=== PATIENT | female | born 1985 | race Hispanic/Latino ===

== ENCOUNTER 2017-04-02 08:29 | Outpatient (CLI) | payer OTHER ==
--- NOTE | 2017-04-02 10:17 | ULT ---
OB ULTRASOUND COMPLETE: HISTORY: Evaluate anatomy, 32-week-old patient with second-trimester . FINDINGS: Multiple longitudinal and transverse images of an intrauterine were obtained using a multih ertz curvilinear transducer. Real-time, color flow, and spectral waveform Doppler analysis was used to evaluate the fetus. Images demonstrate a viable intrauterine with the fetus in a breech presentation. The plac enta is posterior and grade 0. Cardiac activity is confirmed measuring 158 b.p.m. anatomic survey is unremarkable. Intracranial structures, spine, cerebellum, 3-vessel cord, di aphragm, right and left kidneys, stomach, 4-chamber heart, as well as cord insertion are unremarkable . The posterior fossa as well as lips and nose are not visualized to comment upon. BIOMETRICS: Biparietal diameter 42 mm, 18 weeks 5 days Head circumference 163 mm, 19 weeks 0 days Abdominal circumference 137 mm, 19 weeks 1 day Femur length 28 mm, 18 weeks 5 days Composite age equals 18 weeks 5 days with an estimated date of delivery of 08/28/17. Estimated weight is 266 gm +/- 39 gm. IMPRESSION: Viable intrauterine . Estimated gestational age is 18 weeks 6 days with an estimated date o f delivery of 08/28/17. POS: [facility]
== END 2017-04-02 08:30 | disposition home or self-care (01) ==
LOC: ULT 08:29
PROVIDERS: ATTEND Family Medicine
DX: Z34.92 Encounter for supervision of normal pregnancy, unspecified, second trimester (principal); Z3A.18 18 weeks gestation of pregnancy
CPT/HCPCS: 76805

== ENCOUNTER 2017-07-11 13:57 | Outpatient (CLI) | payer OTHER | END 2017-07-11 13:58 | disposition home or self-care (01) | LOC: RAD 13:57 | PROVIDERS: ATTEND Family Medicine | DX: O24.419 Gestational diabetes mellitus in pregnancy, unspecified control (principal); O99.89 Other specified diseases and conditions complicating pregnancy, childbirth and the puerperium; E23.2 Diabetes insipidus | CPT/HCPCS: 97802 ==

== ENCOUNTER 2017-08-26 08:07 | Inpatient (IN) | payer OTHER ==
[2017-08-26 08:52] VITALS: BMI 37.0
[2017-08-26] MEDS ORDERED: Bicitra 30 ML UDCUP PO SCH (09:01)
[2017-08-26] MEDS ORDERED: Ondansetron HCl/PF 4 MG/2 ML Vial IVP PRN ×5 (09:01→15:13)
[2017-08-26] MEDS ORDERED: CEFAZOLIN/Water 2 GM/20 ML SYRINGE SLOW IVP SCH (09:01)
[2017-08-26] MEDS ORDERED: Promethazine HCl 25 MG/ML VIAL IM PRN ×2 (09:01→10:36)
[2017-08-26] MEDS ORDERED: Lactated Ringer's 1,000 ML IV SCH ×3 (09:01→15:13)
[2017-08-26 09:54] LABS: Hemoglobin 13.5 g/dL (12.0-16.0); Mean Corpuscular HGB CONC 32.6 g/dL (32.0-36.0); Mean Corpuscular Hemoglobin 32.2 pg (27.0-31.0); Mean Corpuscular Volume 98.8 fl (81.0-99.0); Mean Platelet Volume 8.2 fL (7.4-10.4); Platelet Count 224 thou/uL (130-400); RBC Distribution Width 13.9 % (11.5-14.5); White Blood Cell (WBC) Count 8.5 thou/uL (4.8-10.8)
[2017-08-26] MEDS ORDERED: Bupivacaine 0.75% W/DEXTROSE 8.25% 2 ML AMP ONE (10:26)
[2017-08-26] MEDS ORDERED: Lidocaine 1% PF 5 ML VIAL ONE (10:26)
[2017-08-26] MEDS ORDERED: Bupivacaine 0.25% HCL 30 ML VIAL ONE (10:26)
[2017-08-26] MEDS ORDERED: ePHEDrine/0.9% NaCl/PF SYRINGE 50 mg/10 ml ONE (10:27)
[2017-08-26] MEDS ORDERED: Morphine PF 1 MG/ML SYR ONE (10:27)
[2017-08-26] MEDS ORDERED: Oxytocin 10 UNITS/ML VIAL ONE (10:27)
[2017-08-26 10:28] LABS: HBSAg Index 0.18 S/CO (0-0.99); Hep B Surf Ag Non-Reactive S/CO (NonReactive)
[2017-08-26 10:29] LABS: Syphilis Antibody Nonreactive (Nonreactive); Syphilis Antibody Index 0.04 S/CO (<1.00 Non-Reactive)
[2017-08-26] MEDS ORDERED: Naloxone HCl 0.4 mg/ml Vial IV PRN (10:36)
[2017-08-26] MEDS ORDERED: Naloxone HCl 0.4 mg/ml Vial IVP PRN ×2 (10:36)
[2017-08-26] MEDS ORDERED: Eucerin (Mineral Oil/Petrolatum,White) 30 gm Jar TOP PRN (10:36)
[2017-08-26] MEDS ORDERED: Promethazine HCl 25 MG SUPP PR PRN (10:36)
[2017-08-26] MEDS ORDERED: Ketorolac Tromethamine 30 MG/ML VIAL IVP PRN ×2 (10:36→19:22)
[2017-08-26] MEDS ORDERED: diphenhydrAMINE 50 MG/ML VIAL IVP PRN (10:36)
[2017-08-26] MEDS ORDERED: HYDROmorphone 2 MG/ML VIAL SLOW IVP PRN ×2 (10:37)
[2017-08-26] MEDS ORDERED: Meperidine HCl/PF 25 MG/ML VIAL SLOW IVP PRN ×3 (10:37→22:45)
[2017-08-26] MEDS ORDERED: Ketorolac Tromethamine 30 MG/ML VIAL IVP SCH ×2 (10:45)
[2017-08-26] MEDS ORDERED: Communication Order-Pharmacy FS SCH (10:45)
[2017-08-26] MEDS ORDERED: Ondansetron HCl/PF 4 MG/2 ML Vial ONE ×2 (10:49→16:06)
--- NOTE | 2017-08-26 12:02 | OP ---
DATE OF PROCEDURE: 08/26/2017 PREOPERATIVE DIAGNOSIS: Term intrauterine with previous section in active labor. POSTOPERATIVE DIAGNOSES: Term intrauterine with previous section in active labor, status post delivery. PROCEDURE: Repeat low transverse section. SURGEON: Jenn Meadows M.D. HAMMER ADJUSTER: Dr. Gurdeep Topete. ANESTHESIA: Spinal anesthetic. COMPLICATIONS: No complications. PROCEDURE IN DETAIL: After adequate spinal anesthetic, the patient was placed in supine position. A wedge was placed under her right flank. A Casillas catheter was placed and the abdomen was prepped and draped in the usual sterile technique. A Pfannenstiel incision was made through the old scar. Subc utaneous tissue opened with sharp dissection. Fascia opened with sharp dissection. Peritoneum opene d with sharp and blunt dissection. It was noted that the abdomen was filled with a gravid uterus. A large Anthony O retractor was placed without difficulty and a low transverse incision was made on the uterus. Membranes were ruptured, clear fluid was encountered, and a viable female was delive red in vertex presentation with vacuum assist without difficulty. breathed and cried spontane ously. Approximately 1 minute after delivery the cord was clamped and cut and was handed to [facility] care of the neonatology team. Cord blood was obtained and the placenta was delivered manually and appeared intact. Hysterotomy edges were grasped with ring forceps and the uterus was wiped clean wi th a wet lap. The hysterotomy was then closed in continuous fashion using 0 Monocryl suture. A seco nd layer of imbrication was placed as well as 2 additional [id number] with 0 chromic suture. He mostasis was adequate with the exception of 1 area with some oozing on the left lateral edge. FloSea l was placed over this and wet lap was placed. Approximately 3 minutes later, the area was examined and there was no further bleeding. The peritoneal edges were grasped with hemostats and this layer w as closed in continuous fashion using 2-0 chromic and the fascia was then closed using 0 Vicryl. Spo nge and instrument counts were correct. Wound was irrigated. A few bleeders were cauterized on the subcutaneous tissue and subcutaneous tissue was then closed in continuous fashion using 2-[address] [facility] skin was closed using jaquelin. The patient tolerated the procedure well to go to the recovery [facility] in good condition. Noted the baby is a viable female infant, weight 7 pounds 8 ounces, Apgars 9 at 1 minute and 9 at 5 minutes in level 1 nursery. ESTIMATED BLOOD LOSS: 700 mL.
[2017-08-26] MEDS ORDERED: LR / Pitocin 40 units/1000 ml 1,000 ML ONE (12:24)
[2017-08-26] MEDS ORDERED: Ketorolac Tromethamine 30 MG/ML VIAL ONE (13:08)
[2017-08-26] MEDS ORDERED: Acetaminophen 325 MG TAB PO PRN (15:13)
[2017-08-26] MEDS ORDERED: Lanolin Ointment 7 GM TUBE TOP PRN (15:13)
[2017-08-26] MEDS ORDERED: Ibuprofen 800 MG TAB PO SCH (15:13)
[2017-08-26] MEDS ORDERED: diphenhydrAMINE 25 MG CAP PO PRN (15:13)
[2017-08-26] MEDS ORDERED: Simethicone Chewable 80 MG TAB PO PRN (15:13)
[2017-08-27 05:52] LABS: Hemoglobin 11.9 g/dL (12.0-16.0); Mean Corpuscular HGB CONC 34.1 g/dL (32.0-36.0); Mean Corpuscular Hemoglobin 34.4 pg (27.0-31.0); Mean Platelet Volume 7.7 fL (7.4-10.4); Platelet Count 194 thou/uL (130-400); RBC Distribution Width 13.9 % (11.5-14.5); Red Blood Cell (RBC) Count 3.45 mill/uL (4.20-5.40); White Blood Cell (WBC) Count 6.8 thou/uL (4.8-10.8)
[2017-08-27] MEDS: Prenatal Vitamin 1 TAB PO SCH (08:28)
[2017-08-27] MEDS: HYDROcodone/Acetaminophen 5/325 mg Tablet PO PRN (13:15)
[2017-08-27] MEDS ORDERED: Ibuprofen 800 MG TAB PO SCH (16:15)
[2017-08-27] MEDS: Ibuprofen 800 MG TAB PO SCH (22:19)
[2017-08-28] MEDS: HYDROcodone/Acetaminophen 5/325 mg Tablet PO PRN ×3 (05:29→17:01)
[2017-08-28] MEDS: Ibuprofen 800 MG TAB PO SCH ×2 (05:30→17:01)
[2017-08-28] MEDS: Prenatal Vitamin 1 TAB PO SCH (10:30)
[2017-08-29] MEDS: Acetaminophen/Codeine 30-300mg Tablet PO PRN ×2 (03:46→08:33)
[2017-08-29] MEDS: Ibuprofen 800 MG TAB PO SCH ×2 (03:49→03:53)
[2017-08-29] MEDS: Prenatal Vitamin 1 TAB PO SCH (08:32)
[2017-08-29 08:55] VITALS: BP 105/70; TEMP 98
[2017-08-31] MEDS ORDERED: Ibuprofen 800 MG TAB PO SCH (22:00)
== END 2017-08-29 11:52 | disposition home or self-care (01) | DRG 766 ==
LOC: L&D/OP 08:07 → L&D 09:22 → 3SE 14:19
PROVIDERS: ADMIT Family Medicine; ATTEND Family Medicine
PROC: 10D00Z1 Extraction of Products of Conception, Low, Open Approach (ICD-10-PCS; principal; 2017-08-26)
DX: O34.211 Maternal care for low transverse scar from previous cesarean delivery (principal); O75.89 Other specified complications of labor and delivery; Z37.0 Single live birth; Z3A.39 39 weeks gestation of pregnancy
CPT/HCPCS: 36415; 51702; 85027; 86780; 86850; 86900; 86901; 87340; 99285; J1885; J2001; J2274; J2405; J2550; J2590; J3490; S0020

== ENCOUNTER 2018-04-21 15:30 | Outpatient (CLI) | payer OTHER ==
--- NOTE | 2018-04-21 18:25 | RAD ---
RADIOGRAPH CERVICAL SPINE 6 VIEWS: DATE: 04/21/2018. ATTENTION MARI IN BILLING: This is a 6-view study. HISTORY: A 33-year-old female with M54.12, cervical radiculopathy. TECHNIQUE: Three lateral views in neutral, flexion, and extension. Open-mouth, Fuchs, and AP. FINDINGS: Atlantoaxial joints are normal. At C6-7, there is mild disk space narrowing. Alignment is normal. Vertebral body heights are maintained. There is reversal of curvature on the lateral view. No insta bility between flexion and extension. No degenerative facet changes. IMPRESSION: 1. Mild degenerative disk changes at C6-7. 2. Reversal of curvature. 3. Otherwise, normal. JN [] POS: [facility]
--- NOTE | 2018-04-21 18:59 | MRI ---
CERVICAL SPINE MRI WITHOUT CONTRAST: HISTORY: Cervical radiculopathy. Bilateral hand and finger tingling x4 weeks. COMPARISON: None. TECHNIQUE: An MRI of the cervical spine is performed without intravenous Gadolinium administration, and multiseq uential, multiplanar imaging is performed. FINDINGS: Appropriate T1 marrow signal intensity of the cervical vertebrae. Cervical spine vertebral body heig ht is maintained. There is no fracture. No significant STIR hyperintensity to suggest vertebral bod y edema or ligamentous injury. The visualized brain parenchyma, cervicomedullary junction, cervical cord, and upper thoracic cord frazier ve normal size and signal intensity. C2-C3: Minimal central disk bulges. No significant central canal stenosis. The neural foramina are patent. C3-C4: Central disk bulge. No significant central canal stenosis. Hypertrophic changes in the bila teral uncovertebral joints results in mild bilateral foraminal narrowing. C4-C5: Central disk bulge. The ventral subarachnoid space is effaced. Minimal mass effect upon the ventral cord. No T2 hyperintensity in the cord. Degenerative changes in the right uncovertebral natacha int results in mild right foraminal narrowing. The left neural foramina is patent. C5-C6: There is a central disk protrusion with superior midline disk extrusion. There is deformity of the ventral thecal sac and deformity of the cervical cord. Moderate central canal stenosis. No T 2 hyperintensity in the cord. Hypertrophic changes in the right uncovertebral joint result in mild r ight foraminal narrowing. The left neural foramen is patent. C6-C7: There is a broad-based disk bulge. There is mild central canal stenosis. The right neural f oramen is patent. Mild to moderate left foraminal narrowing due to hypertrophic change in the uncove rtebral joint. C7-T1: No significant central canal stenosis. The neural foramina are patent. IMPRESSION: Degenerative change in the cervical spine, as above. POS: [facility]
== END 2018-04-21 15:31 | disposition home or self-care (01) ==
LOC: TBSIIMAG 15:30
PROVIDERS: ATTEND Surgery
DX: M50.123 Cervical disc disorder at C6-C7 level with radiculopathy (principal); M47.22 Other spondylosis with radiculopathy, cervical region
CPT/HCPCS: 72050; 72141

== ENCOUNTER 2023-03-26 12:06 | Outpatient (CLI) | payer BC ==
[2023-03-26 16:02] LABS: BHCG - Serum Negative (NEGATIVE); Pregs Control Bar Appear? YES (CONTROL BAR)
[2023-03-26 16:03] LABS: Pregs Control Background? CLEAR/WHITE (CLR/WHITE)
== END 2023-03-26 12:07 | disposition home or self-care (01) ==
LOC: LABBT 12:06
PROVIDERS: ATTEND Neurological Surgery
DX: Z01.812 Encounter for preprocedural laboratory examination (principal); M54.12 Radiculopathy, cervical region
CPT/HCPCS: 84703

== ENCOUNTER 2023-03-29 06:36 | Day surgery (SDC) | payer BC ==
[2023-03-26 12:59] VITALS: BMI 30.4
[2023-03-29] MEDS ORDERED: Sodium Chloride 0.9% 100 ML ONE ×2 (06:52→13:57)
[2023-03-29] MEDS ORDERED: CEFAZOLIN 2 GM VIAL ONE ×2 (06:52→13:57)
[2023-03-29] MEDS ORDERED: fentaNYL PF 100 MCG/2 ML SYRINGE ONE (08:16)
[2023-03-29] MEDS ORDERED: Midazolam HCl 2 mg/2 ml Vial ONE (08:16)
[2023-03-29] MEDS ORDERED: PROPOFOL 20 ML ONE ×3 (08:16→10:07)
[2023-03-29] MEDS ORDERED: Lidocaine 1% PF 5 ML VIAL ONE ×2 (08:17→08:54)
[2023-03-29] MEDS ORDERED: SUGAMMADEX SODIUM 200 MG/2 ML VIAL ONE (08:17)
[2023-03-29] MEDS ORDERED: Rocuronium Bromide 10 MG/ML (10ML VIAL) ONE ×2 (08:17→08:54)
[2023-03-29] MEDS ORDERED: Ondansetron PF 4 MG/2 ML Vial ONE ×2 (08:17→08:54)
[2023-03-29] MEDS ORDERED: Dexamethasone 20 MG/5 ML VIAL ONE ×2 (08:17→08:54)
[2023-03-29] MEDS ORDERED: HYDROmorphone 0.5 MG/0.5 ML SYRINGE ONE (08:38)
[2023-03-29] MEDS ORDERED: PHENYLEPHRINE-NS 100 MCG/ML 10 ML SYRINGE ONE ×2 (08:54→09:16)
[2023-03-29] MEDS ORDERED: PROPOFOL 200 MG/20 ML VIAL ONE (08:54)
[2023-03-29] MEDS ORDERED: fentaNYL 50 mcg/mL 1 mL Vial ONE (11:32)
== END 2023-03-29 14:55 | disposition home or self-care (01) ==
LOC: SDC 06:36
PROVIDERS: ATTEND Neurological Surgery
PROC: 0RG2070 Fusion of 2 or more Cervical Vertebral Joints with Autologous Tissue Substitute, Anterior Approach, Anterior Column, Open Approach (ICD-10-PCS; principal; 2023-03-29)
PROC: 0RG20A0 Fusion of 2 or more Cervical Vertebral Joints with Interbody Fusion Device, Anterior Approach, Anterior Column, Open Approach (ICD-10-PCS; principal; 2023-03-29)
DX: M54.12 Radiculopathy, cervical region (principal)
CPT/HCPCS: C1713; C1889; J1100; J1170; J2250; J2405; J2704; J3010; J3490